=== PATIENT | male | born 1995 | race Caucasian/White ===

== ENCOUNTER 2024-05-29 14:43 | Emergency (ER) | payer MEDICARE, MEDICAID ==
[~2024-05-29] VITALS: Ht 177.8 cm; Wt 70.0 kg
[2024-05-29 14:45] VITALS: BP 100/61; PULSE 86; RESP 18; TEMP 98.9; O2SAT 98
== END 2024-05-29 15:30 | disposition home or self-care (01) ==
LOC: ER 14:43
DX: J06.9 Acute upper respiratory infection, unspecified (principal); J45.909 Unspecified asthma, uncomplicated
CPT/HCPCS: 99283